=== PATIENT | female | born 1985 | race African-American/Black ===

== ENCOUNTER 2017-06-07 05:59 | Day surgery (SDC) | payer OTHER ==
[~2017-06-07] VITALS: Ht 154.9 cm; Wt 122.5 kg
--- NOTE | ~2017-06-07 | O ---
[facility] [place] [address] OPERATIVE REPORT Name: JADA SOSA Room #: [facility] M..#: [id number] Admission: 06/07/17 Attend Phys: Mohan Graves MD, F Discharge: 06/08/17 Date of : 85 Report #: [id number] THIS REPORT FOR: //name// CC: ROLANDA Graves DATE OF SERVICE: 06/07/2017 SURGEON: Mohan Graves MD COMPACTOR DRIVER: Kathleen Proctor MD PREOPERATIVE DIAGNOSES: 1. Morbid obesity (body mass index 51). 2. Prediabetes. 3. Diabetes mellitus. 4. Hypertension. POSTOPERATIVE DIAGNOSES: 1. Morbid obesity (body mass index 51). 2. Prediabetes. 3. Diabetes mellitus. 4. Hypertension. PROCEDURE: Laparoscopic sleeve gastrectomy with EGD. ANESTHESIA: General endotracheal anesthesia and local anesthetic. ESTIMATED BLOOD LOSS: 5 mL. SPECIMEN: Lateral stomach. COMPLICATIONS: None appreciated. INDICATIONS FOR PROCEDURE: This is a 31-year-old female patient, standing 5 feet tall, weighing nearly 270 pounds at her last visit with a BMI of 49. She has had difficulty with her weight, mostly over the past couple of years, whereby she gained 40-50 pounds and has been unable to lose the weight. She has tried numerous diets, exercises and has worked through her primary care physician. Any amount of weight she has lost, she has quickly regained plus additional weight after stopping the modality. She takes metformin for prediabetes and has complaints of low back pain and bilateral knee pain. She has been cleared from a multidisciplinary standpoint for bariatric surgery. Sleeve gastrectomy is indicated. [address] [address] OPERATIVE REPORT Name: JADA SOSA Room #: DEP [facility]..#: [id number] Admission: 06/07/17 Attend Phys: Mohan Graves MD, F Discharge: 06/08/17 Date of : 85 Report #: [id number] OPERATIVE FINDINGS: On EGD, the patient had a normal appearing esophagus down to the GE junction and Z-line measured at 38 cm from the teeth. There was no evidence for hiatal hernia. The stomach and duodenum to the third portion were normal without polyps, diverticula, masses, or ulcers. On retroflexion of the scope, there was no appreciable hiatal hernia. The scope was left in place to serve the 34-Sammarinese bougie. Laparoscopically, the patient had an enlarged fatty liver without breann steatohepatitis. Her stomach was enlarged as well. The small bowel and colon and the surrounding area appeared otherwise normal. The gastric sleeve staple line was located 4 cm proximal to the pylorus, 3 cm lateral to the incisural and 1 cm lateral to the GE junction. There is no evidence for staple line leak after applying Tisseel and insufflating air into the sleeve. No air bubbles were seen forming within the Tisseel indicative of a negative leak test. There was no endoluminal bleeding seen with the EGD scope on withdrawal of the scope. No other significant intraabdominal pathology was identified. There was no hiatal hernia. At the conclusion of the operation, the sponge, needle and instrument counts were correct. The excised stomach held nearly 1 liter of fluid. DESCRIPTION OF PROCEDURE IN DETAIL: After the benefits and risks of the procedure were explained to the patient which include but are not limited to risks of bleeding, infection, postoperative pain, postoperative expectations and risks of DVT and pulmonary embolus, informed consent was obtained. The patient was identified in the preoperative holding area. The patient was given IV antibiotics as documented in the chart in line with [facility] protocol. The patient was then taken to the operating room and was placed in the supine position. The patient was given IV sedation and was intubated without incident. SCDs were placed on the patient's bilateral lower extremities prior to induction of anesthesia. The patient had been placed in the modified low lying dorsal lithotomy position in stirrups on the beanbag. The beanbag and the patient were taped to the bed to secure the patient. A time-out was then performed to correctly identify the patient and procedure. An orogastric tube was placed by anesthesia. A bite block was placed and the fiberoptic EGD scope was passed into the patient's oropharynx, down the esophagus, into the stomach, and into the third portion of the duodenum. Findings are as noted above. The scope was slowly withdrawn into the antrum and the scope was retroflexed. The hiatus was visualized. The scope was then straightened and the end of the gastroscope was placed at the pylorus. The stomach was decompressed with the scope. The patient's abdomen was then prepped and draped in the standard sterile fashion with surgical prep. Local anesthetic was infiltrated into the skin and subcutaneous tissue in the left supraumbilical area where a sharp #15-blade scalpel was used to make a 5-mm incision. The 5-mm Visiport was placed [address] [address] OPERATIVE REPORT Name: JADA SOSA Room #: DEP [facility]#: [id number] Admission: 06/07/17 Attend Phys: Mohan Graves MD, F Discharge: 06/08/17 Date of : 85 Report #: [id number] intraperitoneally with the 5-mm 0-degree angled laparoscope. Pneumoperitoneum was then achieved with insufflation of carbon dioxide to 15 mmHg. A 5-mm 30-degree angled laparoscope was then inserted. The 15-mm port was placed in the right supraumbilical area after local anesthetic was infiltrated into the skin and subcutaneous tissue and an appropriately sized incision was made. Two additional 5 mm ports were placed in the left abdomen after local anesthetic was infiltrated and incisions were made. All ports were placed under direct visualization. The patient was then placed in reverse Trendelenburg position. Local anesthetic was infiltrated into the skin and subcutaneous tissue in the subxiphoid area and a 5-mm incision was made through which a 5-mm obturator was passed into the abdominal cavity through the fascia to create a passageway for the Myrtle liver retractor. The retractor was placed to retract the liver anteriorly. The retractor was held in place with the Iron Blending Line Attendant apparatus. All abdominal adhesions were then taken down with blunt dissection, sharp dissection and judicious use of the ultrasonic dissector. The gastrosplenic ligament and short gastric vessels were then divided using the ultrasonic dissector with appropriate traction. Bleeding points were made hemostatic with the ultrasonic dissector. Dissection was carried proximally up to the left sherwin of the diaphragm. The distal end point of dissection was then measured at 4 cm proximal to the pylorus. The short gastric vessels and gastrocolic ligaments were dissected to that level. The stomach was then rotated medially to visualize any posterior attachments/adhesions to the stomach. The adhesions were dissected with a combination of sharp dissection and use of the ultrasonic dissector. The endoscope was then slightly withdrawn to place it along the lesser curvature of the stomach. Suction was applied to the orogastric tube which was then removed, leaving the endoscope in place as a 34-Sammarinese bougie. The gastric sleeve was then created. Two black loads of the powered endoscopic BUFFY stapler buttressed with Lisa-Strips were used to staple and divide the stomach 4 cm proximal to the pylorus. Additional green loads buttressed with Lisa-strips were used to staple off the remainder of the stomach using the endoscope as the bougie. Care was taken to ensure that greater than 3 cm of space was present between the incisura and the staple line. The stomach was fully transected and placed in the right upper quadrant of the abdomen for later removal. Tisseel was applied to the entire length of the staple line with the Ololospray aerosolizer to fully ensure hemostasis. A leak test was performed next. The sleeve was insufflated with the endoscope which was slowly withdrawn. No air bubbles were seen in the Tisseel laparoscopically. Endoluminally, no bleeding was seen. The stomach was fully decompressed and the scope was slowly withdrawn. The Myrtle liver retractor was then loosened from the Iron Blending Line Attendant apparatus and it was removed without difficulty. [address] [address] OPERATIVE REPORT Name: JADA SOSA Room #: DEP [facility] [place] [place] Jaiden#: [id number] Admission: 06/07/17 Attend Phys: Mohan Graves MD, F Discharge: 06/08/17 Date of : 85 Report #: [id number] The stomach was then removed from the patient's body through the 15-mm port under direct visualization. A small amount stretching of the fascia was required to create an opening large enough for removal of the stomach. After its removal, the 15-mm port site fascial opening was closed with an 0-PDS suture using the Bg-Eirc laparoscopic fascial closure device. All ports were removed after the abdominal cavity was desufflated. The fascial suture was tied. Interrupted subcuticular 4-0 Monocryl sutures and Dermabond were used to close all skin incisions. The patient tolerated the procedure well. The patient was awakened, extubated and taken to the recovery room in stable condition with no apparent intraoperative complications. <ELECTRONICALLY SIGNED> By: Mohan Graves MD, FACS 06/11/17 0716 1020 1050 Mohan Graves MD, FACS /nt
--- NOTE | ~2017-06-07 | S ---
[facility] [place] [address] SURGICAL PATH RPT PROCEDURE Name: JADA SOSA Room #: DEP [facility]..#: [id number] Admission: 06/07/17 Date of : 85 Discharge: 06/08/17 Report #: [id number] Path Case #: [id number] PATHOLOGY REPORT COLLECTION DATE: 06/07/2017 RECEIVED DATE: 06/07/2017 SUBMITTING PHYS: Dr. Mohan Graves OTHER PHYS: Dr. Eas Luu SPECIMEN(S) RECEIVED: A.Gastric sleeve * * * * * * * * * * * * FINAL DIAGNOSIS: "Gastric sleeve", partial gastrectomy: - Gastric mucosa, submucosa and muscular wall with mild mucosal reactive changes. (CLW:alfred; 06/10/2017) PATHOLOGIST: Juani Varma M.D. REPORT ELECTRONICALLY SIGNED BY: Juani Varma M.D. DATE/TIME: 06/10/2017 18:47 * * * * * * * * * * * * GROSS PATHOLOGY: Received in formalin labeled "Ashli, gastric sleeve", is a partial gastrectomy specimen consisting of an elongated portion of stomach weighing 108 g which when open, measures 20 cm in length, up to 14 cm in circumference and 0.4 cm in wall thickness. The serosal surface is generally smooth. The mucosa has several scattered prominent folds and is without significant gross abnormalities. Located along the longitudinal axis is a staple resection margin. Metal Flooring Installer sections are submitted as follows: En face sections of gastric resection margin adjacent staple line as A1 and other portions of gastric wall as A2-A3. (CWM; 06/18/2017) CLINICAL HISTORY: Preop diagnosis: Morbid obesity Postop diagnosis: Same INITIAL CPT CODE(S): A; 38146 Professional [facility] by [facility] [address] , [place] [address] [facility] [address] [place] [address] SURGICAL PATH RPT PROCEDURE Name: JADA SOSA Room #: DEP [facility].#: [id number] Admission: 06/07/17 Date of : 85 Discharge: 06/08/17 Report #: [id number] Path Case #: [id number] Technical services performed by [facility] at [address] [place] [address], [place] [address]. [place] [address] PHONE: [phone] DIRECTOR: Ac Ashley M.D. * * * END OF REPORT * * *
[~2017-06-07 05:59] MED LIST: PRENATA CHEWAB1 EACH PO; VITAMIN B-12500 MCG PO
[2017-06-07 07:21] VITALS: BP 125/73
[2017-06-07 10:53] VITALS: BP 140/71
[2017-06-07 11:30] VITALS: BP 136/78
[2017-06-07 12:30] VITALS: BP 107/63
[2017-06-07 16:17] VITALS: BP 115/56
[2017-06-07 20:10] VITALS: BP 127/71
[2017-06-08 03:20] VITALS: BP 121/20
[2017-06-08 06:05] LABS: ABSOLUTE NEUTROPHILS 12.5 thou/uL (1.4-8.2); BASOPHILS 0.2 % (0.0-2.0); HEMATOCRIT 36.7 % (37.0-47.0); HEMOGLOBIN 11.6 gm/dL (12.0-15.0); LYMPHOCYTES 14.4 % (24.0-44.0); MCH 26.7 pg (26.0-34.0); MCHC 31.6 g/dL (28.0-37.0); MCV 84.4 fL (80.0-100.0); MONOCYTES 5.3 % (1.0-8.0); PLATELET COUNT 285 thou/uL (150-400); POLYS 80.1 % (36.0-66.0); RBC 4.35 mil/uL (4.20-5.00); RDW 15.7 % (10.5-14.5); WBC 15.6 thou/uL (4.0-11.0)
[2017-06-08 06:08] LABS: MANUAL DIFF NO
[2017-06-08 06:23] LABS: CALCIUM 8.6 mg/dL (8.5-10.1); CREATININE 0.8 mg/dL (0.6-1.0)
[2017-06-08 08:27] VITALS: BP 138/71
[2017-06-08] MEDS ORDERED: ZOFRAN ODT4 MG PO (10:01)
[2017-06-08] MEDS ORDERED: HYDROCODONE-ACE15 ML PO (10:01)
[2017-06-08 14:06] VITALS: BP 138/71
[2017-06-08 15:49] VITALS: BP 138/71
== END 2017-06-08 15:30 ==
LOC: TBA 05:59 → OR 05:59 → 4E 10:46 → GI 10:49 → OR 10:57 → EDSTATUS 16:07 → OR 16:08
PROVIDERS: Surgery
DX: E66.01 Morbid (severe) obesity due to excess calories (principal); E11.9 Type 2 diabetes mellitus without complications; I10 Essential (primary) hypertension; K21.9 Gastro-esophageal reflux disease without esophagitis; Z79.899 Other long term (current) drug therapy
CPT/HCPCS: 50010; 50101; 50222; 50249; 50386; 50555; 50739; 50740; 50962; 51437; 52182; 52265; 53307; 53311; 54022; 54118; 56462; 56525; 56526; 57092; 62110; 62900; 70005